=== PATIENT | female | born 2000 | race Caucasian/White ===

== ENCOUNTER 2018-05-09 14:29 | Emergency (ER) | payer OTHER, MEDICAID, SELFPAY ==
--- NOTE | 2018-05-09 14:30 | ED.FEMALEGU ---
HPI - Female Genitourinary <DARRYN Beck - Last Filed: 05/09/18 21:31> General Chief complaint: Urogenital-Female Stated complaint: burning with urination and back pain Time Seen by Provider: 05/09/18 14:30 Source: patient Mode of arrival: ambulatory Limitations: no limitations History of Present Illness HPI Narrative: 17-year-old healthy female that is an everyday smoker here for complaint of having dysuria and increased urinary frequency over the past several days. She also reports that she has had some lower back pain during the same time frame. She is not sure that this is back pain or due to urinary tract infection. She denies any fevers. No chills. No nausea vomiting. She denies any abdominal pain. Positive p.o. intake. She denies any other concerns or complaints. MD Complaint: UTI Related Data Home Medications Medication Instructions Recorded Confirmed hydroxyzine pamoate 25 mg PO BEDTIME 05/09/18 05/09/18 lamotrigine 100 mg PO DAILY 05/09/18 05/09/18 Previous Rx's Medication Instructions Recorded cephalexin 500 mg PO BID #20 tab 05/09/18 Allergies Allergy/AdvReac Type Severity Reaction Status Date / Time No Known Drug Allergies Allergy Verified 05/09/18 14:35 Review of Systems <DARRYN Beck - Last Filed: 05/09/18 21:31> Constitutional Denies chills, Denies fever(s), Denies lethargy and Denies weakness Eyes Denies change in vision, Denies eye discharge, Denies irritation and Denies loss of vision ENT Ears, Nose, Mouth, and Throat: Denies change in voice, Denies neck pain and Denies sore throat Cardiovascular Denies chest pain, Denies irregular heart rhythm, Denies lightheadedness, Denies palpitations, Denies dyspnea, Denies dyspnea on exertion and Denies orthopnea Respiratory Denies cough, Denies dyspnea, Denies dyspnea on exertion and Denies wheezing Gastrointestinal Gastrointestinal: Denies abdominal pain, Denies change in bowel habits, Denies diarrhea, Denies nausea and Denies vomiting Genitourinary Reports dysuria Musculoskeletal Denies neck pain Integumentary/Breasts Denies pruritus, Denies erythema, Denies rash and Denies wounds Neurologic Denies confusion, Denies loss of vision and Denies weakness Psychiatric Denies anxiety, Denies confusion, Denies depression, Denies homicidal ideation and Denies suicidal ideation Endocrine Denies palpitations Hematologic/Lymphatic Denies easy bruising Allergic/Immunologic Denies wheezing PFSH <DARRYN Beck - Last Filed: 05/09/18 21:31> Social History Smoking Status: Current every day smoker Exam <DARRYN Beck - Last Filed: 05/09/18 21:31> Initial Vital Signs Initial Vital Signs: Vital Signs Temperature 97.6 F 05/09/18 14:31 Pulse Rate 87 05/09/18 14:31 Respiratory Rate 14 05/09/18 14:31 Blood Pressure 126/76 05/09/18 14:31 Pulse Oximetry 98 05/09/18 14:31 Const General: cooperative and well developed Nutritional Appearance: well nourished Orientation: alert, awake, oriented x3 and not confused HENMT Mouth: oral mucosae normal and moist mucous membranes Eyes Conjunctivae: conjunctivae normal Sclera: sclerae normal Pupils: PERRL EOM: EOM intact bilaterally Resp Effort & Inspection: normal respiratory effort, able to speak in complete sentences, no respiratory distress and no use of accessory muscles Auscultation: clear to auscultation bilaterally, no rales, no rhonchi and no wheezes Cardio Rate: regular rate Rhythm: regular rhythm Heart Sounds: no click, no gallops, no murmurs and no rubs GI Inspection: non-distended Palpation: soft, no hepatosplenomegaly, No guarding, No pulsatile mass and No tender Auscultation: normal bowel sounds General: No CVA tenderness Skin General: no rashes or lesions noted, No jaundice and No petechiae Neuro General: alert, oriented x3, gait normal and no focal motor deficits Speech: speech normal <Suzanne Woods DO - Last Filed: 05/18/18 16:35> Initial Vital Signs Initial Vital Signs: Vital Signs Temperature 97.6 F 05/09/18 14:31 Pulse Rate 87 05/09/18 14:31 Respiratory Rate 14 05/09/18 14:31 Blood Pressure 126/76 05/09/18 14:31 Pulse Oximetry 98 05/09/18 14:31 Course <DARRYN Beck - Last Filed: 05/09/18 21:31> Orders Ordered: ED Orders 05/09/18 14:50 Urine Culture Stat Urine Microscopic Stat Vital Signs - 8 hr 05/09/18 14:31 Temperature 97.6 F Pulse Rate 87 Respiratory Rate 14 Blood Pressure 126/76 Pulse Oximetry 98 <Suzanne Woods DO - Last Filed: 05/18/18 16:35> Orders Ordered: ED Orders 05/09/18 14:50 Urine Culture Stat Urine Microscopic Stat Vital Signs - 8 hr 05/09/18 14:31 Temperature 97.6 F Pulse Rate 87 Respiratory Rate 14 Blood Pressure 126/76 Pulse Oximetry 98 MDM - Female Genitourinary <DARRYN Beck - Last Filed: 05/09/18 21:31> Lab Data Lab Results 05/09/18 Range/Units 14:50 Urine RBC 1-5/hpf (0-5/HPF) Urine WBC 5-10/hpf H (0-5/HPF) Ur Squamous Epith Cells 5-10 /hpf H Ur Renal Epithelial Cell 1-5/hpf Amorphous Sediment 3+ Urine Bacteria None seen (None) Ur Culture Indicated? Cult not indicated Urine Dip Bedside Urine Glucose Negative Bedside Urine Bilirubin - Negative Bedside Urine Ketone - Negative Urine Specific [place] 1.020 Bedside Urine Occult Blood + Bedside Urine pH 6.0 Bedside Urine Protein +/- 15 Bedside Urine Urobilinogen - Negative Bedside Urine Nitrite - Negative Bedside Urine Leukocytes ++ 125 Esterase MDM Narrative Medical decision making narrative: Urinalysis was positive for leuko esterase and WBCs indicating urinary tract infection. She did not have any CVA tenderness on exam however she did complain of having some left flank pain. She is treated for urinary tract infection and starting a pyelonephritis with Keflex. Plenty of fluids. Follow up with primary care provider in the next couple of days for re-evaluation. For any worsening symptoms return emergency room. Urine culture is pending. <Suzanne Wodos DO - Last Filed: 05/18/18 16:35> Lab Data Lab Results 05/09/18 Range/Units 14:50 Urine RBC 1-5/hpf (0-5/HPF) Urine WBC 5-10/hpf H (0-5/HPF) Ur Squamous Epith Cells 5-10 /hpf H Ur Renal Epithelial Cell 1-5/hpf Amorphous Sediment 3+ Urine Bacteria None seen (None) Ur Culture Indicated? Cult not indicated Urine Dip Bedside Urine Glucose Negative Bedside Urine Bilirubin - Negative Bedside Urine Ketone - Negative Urine Specific [place] 1.020 Bedside Urine Occult Blood + Bedside Urine pH 6.0 Bedside Urine Protein +/- 15 Bedside Urine Urobilinogen - Negative Bedside Urine Nitrite - Negative Bedside Urine Leukocytes ++ 125 Esterase Discharge Plan Departure Patient Disposition: Home Clinical Impression: Urinary tract infection Qualifiers: Urinary tract infection type: acute cystitis Hematuria presence: without hematuria Qualified Code(s): N30.00 - Acute cystitis without hematuria Discharge Date/Time: 05/09/18 15:52 Interventions: ED Discharge Assessment Last Done: 05/09/18 15:53 Instructions: DI for Urinary Tract Infection (UTI) Activity Restrictions/Additional Instructions: Urinalysis indicates urinary tract infection. You are treated with an antibiotic use as directed. Follow up with her primary care provider in the next few days for re-evaluation. Plenty of fluids. For any worsening symptoms Prescriptions: New cephalexin 500 mg tablet 500 mg PO BID Qty: 20 RF: 0 No Action hydroxyzine pamoate 25 mg Capsule 25 mg PO BEDTIME RF: 0 lamotrigine 100 mg tablet 100 mg PO DAILY RF: 0 Referrals: [facility] [Provider Group] <Suzanne Woods DO - Last Filed: 05/18/18 16:35> Cosign ED Attending Cosignature Attestation: I was immediately available in the department for consultation. This documentation has been reviewed and I agree with assessment and plan. Supervised by Suzanne Woods DO
[2018-05-09 14:31] VITALS: BP 126/76; PULSE 87; RESP 14; TEMP 36.4; O2SAT 98; BMI 36.0
[2018-05-09 14:54] LABS: Bacteria Urine None Seen
[2018-05-09 15:09] LABS: Amorphous Sediment Urine 3+; Culture Indicated Urine Cult Not Indicated; RBC Urine 1-5/HPF (0-5/HPF); Renal Epithelial Cells Urine 1-5/HPF; Squamous Epithelial Cell Urine 5-10 /HPF; WBC Urine 5-10/HPF (0-5/HPF)
== END 2018-05-09 15:52 | disposition home or self-care (01) ==
PROVIDERS: Emergency Provider Nurse Practitioner Family
DX: N39.0 Urinary tract infection, site not specified (principal)
CPT/HCPCS: 81003; 81015; 87077; 87086; 87186; 99282; 99283

== ENCOUNTER 2020-12-05 20:34 | Emergency (ER) | payer OTHER, MEDICAID, SELFPAY ==
[2020-12-05 20:50] VITALS: BP 126/76; PULSE 87; RESP 20; TEMP 36.6; O2SAT 99; BMI 36.8
[2020-12-05 21:13] LABS: COVID19 -Nasal RAPID POSITIVE (Negative)
--- NOTE | 2020-12-05 21:20 | ED_ITS ---
HPI - URI/Sore Throat General Chief Complaint: Upper Respiratory Symptoms Stated Complaint: covid+, SOB, covid exposure. at home test Time Seen by Provider: 12/05/20 20:51 History of Present Illness HPI Narrative: 19-year-old female smoker presents with a chief complaint of nasal congestion, runny nose, sore throat and dry hacking cough for the past day and a half. She was at a music festival last weekend and thinks she was likely exposed to persons with COVID. She is not received a COVID vaccination. She denies nausea, vomiting or diarrhea. She took a home test which was positive but her place of work would not accept this as evidence and recommended she come here for rapid testing Related Data Home Medications Medication Instructions Recorded Confirmed hydroxyzine pamoate 25 mg capsule 25 mg PO BEDTIME 05/09/18 05/09/18 lamotrigine 100 mg tablet 100 mg PO DAILY 05/09/18 05/09/18 Previous Rx's Medication Instructions Recorded cephalexin 500 mg tablet 500 mg PO BID #20 tab 05/09/18 Allergies Allergy/AdvReac Type Severity Reaction Status Date / Time No Known Drug Allergies Allergy Verified 05/09/18 14:35 Review of Systems Review of Systems Narrative: GENERAL: See HPI HEENT: See HPI RESPIRATORY: See HPI. CARDIOVASCULAR: Denies chest pain, palpitations, orthopnea, edema, GASTROINTESTINAL: Denies nausea, vomiting, abdominal pain, diarrhea, constipation, melena. : Denies dysuria, frequency, incontinence, hematuria, urinary retention. MUSCULOSKELETAL: denies weakness, joint pain, or bony pain SKIN: Denies rash, skin lesions, or other NEUROLOGIC: Denies weakness, headache, numbness, change in speech, confusion, seizures, incoordination. PSYCHIATRIC: No concerning psychosocial issues. 12 point review of systems is negative except for those stated above Patient History Social History Smoking Status: Current every day smoker Smoking Status: Current every day smoker tobacco type: vaping Substance Use Type: does not use Exam Narrative Exam Narrative: GENERAL: [19] year old patient appears stated age. Well- developed patient, in mild distress. HEAD: Atraumatic. Normocephalic. EYES: Pupils equal round and reactive. Extraocular motions intact. No scleral icterus. No injection or drainage. ENT: Moist mucous membranes, clear nasal drainage bilaterally Nose without bleeding, purulent drainage. Throat without erythema, tonsillar hypertrophy or exudate. Airway patent. NECK: Trachea midline. Non tender CARDIOVASCULAR: Regular rate and rhythm without murmurs, gallops, or rubs. RESPIRATORY: Clear to auscultation. Breath sounds equal bilaterally. No wheezes, rales, or rhonchi. No increased work of breathing such as nasal flaring, use of intercostals or other accessory muscles GASTROINTESTINAL: Abdomen soft, non-tender, nondistended. EXTREMITIES: No edema or joint tenderness. BACK: Nontender without deformity or crepitance. No flank tenderness. NEURO: AOx3. SKIN: No rash or erythema of visible areas Initial Vital Signs Initial Vital Signs: Vital Signs Temperature 97.9 F 12/05/20 20:50 Pulse Rate 87 12/05/20 20:50 Respiratory Rate 20 12/05/20 20:50 Blood Pressure 126/76 12/05/20 20:50 Pulse Oximetry 99 12/05/20 20:50 Course Orders Ordered: ED Orders 12/05/20 20:59 COVID19 -Nasal swab/Pre-Proc Stat Vital Signs Vital signs: Vital Signs - 8 hr 12/05/20 20:50 Temperature 97.9 F Pulse Rate 87 Respiratory Rate 20 Blood Pressure 126/76 Pulse Oximetry 99 MDM - URI/Sore Throat Lab Data Labs: Lab Results 12/05/20 Range/Units 20:59 SARS-CoV-2 (PCR) Positive H (Negative) MDM Narrative Medical decision making narrative: Patient with minimal symptoms and very stable vitals test positive for COVID, she is 2 days into symptoms and perhaps as much as 1 week into her exposure. She was given extensive discussion about return precautions and we discussed the CDC's current return to work precautions. Discharge Plan Departure Patient Disposition: Home Clinical Impression: COVID-19 Instructions: Coronavirus Disease 2019 Activity Restrictions/Additional Instructions: *You have been diagnosed with [ COVID-19] *What to do: * per recommendations from the CDC and the [facility] Department of Health * stay home except to get medical care. Restrict activities outside your home, except for getting medical care. Do not go to work, school, or public areas. Avoid using public transportation, ride sharing, or taxis. * separate yourself from other people in your home. * call ahead before visiting your doctor * Wear a facemask * Cover your coughs and sneezes * Clean your hands often * Avoid sharing household items * Clean all high-touch services every day * Monitor your symptoms and seek prompt medical attention if your illness is worsening, particularly with difficulty in breathing. You may discontinue your isolation when: 1. You have been fever-free for at least 24 hours without the use of fever reducing medication, AND 2. Your symptoms are getting better 3. At least 10 days have passed since symptoms first appeared Individuals with laboratory confirmed COVID-19 who have not had any symptoms may discontinue home isolation when at least 10 days have passed since the date of their first COVID-19 diagnostic test and have had no subsequent illness Prescriptions: No Action hydroxyzine pamoate 25 mg Capsule 25 mg PO BEDTIME RF: 0 lamotrigine 100 mg tablet 100 mg PO DAILY RF: 0 cephalexin 500 mg tablet 500 mg PO BID Qty: 20 RF: 0 Referrals: [facility] [Outside]
== END 2020-12-05 21:33 | disposition home or self-care (01) ==
PROVIDERS: Emergency Provider Emergency Medicine
DX: U07.1 COVID-19 (principal)
CPT/HCPCS: 87635; 99281; 99282; C9803

== ENCOUNTER 2021-02-06 18:59 | Emergency (ER) | payer OTHER, MEDICAID, SELFPAY ==
[2021-02-06 19:07] VITALS: BP 123/62; PULSE 90; RESP 18; TEMP 36.2; O2SAT 98
[2021-02-06 20:04] LABS: COVID19 -Nasal RAPID Negative (Negative)
--- NOTE | 2021-02-06 21:14 | ED.RECABL ---
HPI - Recheck/Abnormal Lab/Rx General Chief Complaint: Recheck/Abnormal Lab/Rx Stated Complaint: wants covid test Time Seen by Provider: 02/06/21 21:14 Source: patient Mode of arrival: Ambulatory Limitations: no limitations History of Present Illness HPI narrative: Patient is a 20 female history of bipolar presenting today with wanting a COVID test. Her roommate started having COVID symptoms 5 days ago he says they are relatively separate however they spoke to work together however and separate Konrad. She tested positive for COVID today. Required by work to have a COVID test before returning back to work. She says that she denies any symptoms and overall feels well. Roommate left today. Related Data Home Medications Medication Instructions Recorded Confirmed hydroxyzine pamoate 25 mg capsule 25 mg PO BEDTIME 05/09/18 05/09/18 lamotrigine 100 mg tablet 100 mg PO DAILY 05/09/18 05/09/18 Allergies Allergy/AdvReac Type Severity Reaction Status Date / Time sumatriptan [From Imitrex] Allergy Intermediate Hives Verified 01/05/21 12:47 Review of Systems Review of Systems Narrative: GENERAL: Denies chills,fever HEENT: Denies throat pain RESPIRATORY: Denies dyspnea, cough, wheezing CARDIOVASCULAR: Denies chest pain, palpitations GASTROINTESTINAL: Denies nausea, vomiting MUSCULOSKELETAL: Denies extremity pain, injury SKIN: No rash, no laceration, no pruritus NEUROLOGIC: Denies weakness, dizziness, headache, numbness 8 point review of systems is negative except for those stated above and HPI Patient History Medical History (Updated 02/06/21 @ 21:16 by María Bradley DO) Migraine Social History Smoking Status: Current every day smoker Smoking Status: Current every day smoker tobacco type: vaping Substance Use Type: does not use Exam Initial Vital Signs Initial Vital Signs: Vital Signs Temperature 97.2 F L 02/06/21 19:07 Pulse Rate 90 02/06/21 19:07 Respiratory Rate 18 02/06/21 19:07 Blood Pressure 123/62 02/06/21 19:07 Pulse Oximetry 98 02/06/21 19:07 GENERAL: Well-appearing, well-nourished and in no acute distress. CARDIOVASCULAR: peripheral pulses in tact, cap refill <2 sec RESPIRATORY: No respiratory distress, speaks in full sentences without difficulty EXTREMITIES: Normal range of motion, no clubbing or edema. Neurovascularly intact NEUROLOGICAL: Cranial nerves II through XII grossly intact. Normal gait and speech. SKIN: Warm, dry, no petechiae, no rashes or lesions. Course Orders Ordered: ED Orders 02/06/21 19:10 COVID19 -Nasal swab/Pre-Proc Stat Vital Signs Vital signs: Vital Signs - 8 hr 02/06/21 19:07 02/06/21 21:21 Temperature 97.2 F L Pulse Rate 90 82 Respiratory Rate 18 15 Blood Pressure 123/62 126/79 Pulse Oximetry 98 100 MDM - Recheck/Abnormal Lab/Rx Lab Data Labs: Lab Results 02/06/21 Range/Units 19:10 SARS-CoV-2 (PCR) Negative (Negative) Discharge Plan Departure Patient Disposition: Home Clinical Impression: Worried well Instructions: About the COVID-19 Vaccine, Can COVID-19 be prevented? Activity Restrictions/Additional Instructions: *You have been diagnosed with at this time COVID test is negative *What to do: I do recommend having a repeat COVID test in about 3-5 days. Encourage you to get a COVID vaccine as long as a COVID test remains negative. If it is positive you must wait until your infection is over. *Continue to take medications as directed *Follow up with your primary care provider in 2-3 days *Return to ER if you should have any new, worsening or concerning symptoms Prescriptions: No Action hydroxyzine pamoate 25 mg Capsule 25 mg PO BEDTIME RF: 0 lamotrigine 100 mg tablet 100 mg PO DAILY RF: 0 Referrals: Eros Guillen MD [Primary Care Provider] -
[2021-02-06 21:21] VITALS: BP 126/79; PULSE 82; RESP 15; O2SAT 100
== END 2021-02-06 21:22 | disposition home or self-care (01) ==
PROVIDERS: Emergency Medicine; Emergency Provider Emergency Medicine; PCP Family Medicine
DX: Z20.822 Contact with and (suspected) exposure to COVID-19 (principal)
CPT/HCPCS: 87635; 99281; C9803

== ENCOUNTER 2022-07-15 07:26 | Emergency (ER) | payer OTHER, MEDICAID, SELFPAY ==
--- NOTE | 2022-07-15 07:59 | ED.ABDPAIN ---
HPI - Abdominal Pain General Chief Complaint: Abdominal Pain Stated Complaint: vomiting/lightheaded Time Seen by Provider: 07/15/22 07:46 Source: patient Mode of arrival: Ambulatory Limitations: no limitations History of Present Illness HPI narrative: Patient presents with lower abdominal pain, nausea vomiting. She is had intermittent upper abdominal pain for several weeks, generally radiating to her back. Over last couple days the abdominal pain, nausea vomiting have been persistent. Pain radiates to her back associated with the abdominal pain. She is uncertain if oral intake exacerbate the pain, she is currently not eating much. She is no fever chills with the current symptoms. She is no diarrhea. She is no history of PUD. She does not smoke. She does not use heavy alcohol. She occasionally uses marijuana. She is no history of GI or surgeries. She is on control, is unlikely. She is no hematuria or dysuria. There is no change in the color of her urine or stools. She was recently seen in walk-in clinic and started on omeprazole and sucralfate. Related Data Home Medications Medication Instructions Recorded Confirmed hydroxyzine pamoate 25 mg capsule 25 mg PO BEDTIME 05/09/18 05/09/18 lamotrigine 100 mg tablet 100 mg PO DAILY 05/09/18 05/09/18 Previous Rx's Medication Instructions Recorded ondansetron 4 mg disintegrating 4 mg PO Q4-6H PRN nausea and 07/15/22 tablet vomiting #20 tabs Allergies Allergy/AdvReac Type Severity Reaction Status Date / Time sumatriptan [From Imitrex] Allergy Intermediate Hives Verified 01/05/21 12:47 Review of Systems Review of Systems ROS Unobtainable: All systems reviewed & are unremarkable except as noted in HPI and below Constitutional Constitutional: Denies body ache(s), Denies chills, Denies fever(s) and Denies headache(s) Eyes Eyes: Denies change in vision ENT Ears, Nose, Mouth, and Throat: Denies dizziness, Denies headache(s), Denies sinus pain and Denies sore throat Cardiovascular Cardiovascular: Denies chest pain, Denies palpitations and Denies dyspnea Respiratory Respiratory: Denies cough and Denies dyspnea Gastrointestinal Gastrointestinal: Reports as per HPI Genitourinary Genitourinary: Reports as per HPI Musculoskeletal Musculoskeletal: Reports back pain Integumentary/Breasts Skin/Breast: Denies rash and Denies jaundice Neurologic Neurologic: Denies dizziness and Denies headache(s) Psychiatric Psychiatric: Denies anxiety and Denies depression Endocrine Endocrine: Denies palpitations Hematologic/Lymphatic On Anticoagulants: No Patient History Medical History (Updated 07/15/22 @ 14:17 by Ras Calle MD) Migraine Surgical History (Updated 07/15/22 @ 08:09 by Ras Calle MD) No significant past surgical history Social History Smoking Status: Current some day smoker Smoking Status: Current every day smoker tobacco type: vaping Substance Use Type: does not use Exam Initial Vital Signs Initial Vital Signs: Vital Signs Temperature 97.4 F L 07/15/22 08:04 Pulse Rate 93 H 07/15/22 08:04 Respiratory Rate 18 07/15/22 08:04 Blood Pressure 155/95 H 07/15/22 08:04 Pulse Oximetry 96 07/15/22 08:04 Oxygen Delivery Method Room Air 07/15/22 08:04 Const General: cooperative, healthy appearing and comfortable Nutritional Appearance: obese [facility] Head: normocephalic and atraumatic Eyes Conjunctivae: conjunctivae normal Pupils: PERRL EOM: EOM intact bilaterally Neck Neck: normal visual inspection, full ROM and no meningeal signs Resp Auscultation: clear to auscultation bilaterally Cardio Rate: regular rate Rhythm: regular rhythm Heart Sounds: S1 normal and S2 normal GI Other: Epigastric and right upper quadrant tenderness without distention, guarding or rebound. No masses. Normal bowel sounds. Back/Spine/Pelvis Back: No CVA tenderness Skin General: no rashes or lesions noted and No jaundice Neuro General: patient alert, patient awake, patient oriented x3, no meningeal signs and no focal motor deficits Extrem General: normal to inspection, full ROM, no pedal edema and no calf tenderness Psych Mental Status: mental status grossly normal Course Course Course Narrative: Ultrasound reveals normal gallbladder, she has hepatic steatosis. She is on omeprazole and Carafate prescribed from walk-in clinic. She is improved here on Protonix, Zofran and Toradol. Labs are reassuring. She is advised to continue current medications. Zofran as prescribed. She is advised to be on a low-fat diet, and follow up with her see PCM. Orders Ordered: ED Orders 07/15/22 08:00 Complete Blood Count AUTO DIFF Stat Comprehensive Metabolic Panel Stat Lipase Stat 07/15/22 08:04 US abdomen limited Stat 07/15/22 09:48 Urine Culture Stat Urine Microscopic Stat Ondansetron HCl (Ondansetron 4 Mg Odt) 4 mg PO NOW PRN PRN Reason: Nausea And Vomiting Ondansetron HCl (Ondansetron 4 Mg/2 Ml Inj) 4 mg IV NOW PRN PRN Reason: Nausea And Vomiting Last Admin: 07/15/22 11:12 Dose: 4 mg Documented By: AT Discontinued Medications Sodium Chloride (Normal Saline 0.9%) 1,000 mls @ 1,000 mls/hr IV BOLUS ONE Stop: 07/15/22 09:03 Last Infusion: 07/15/22 09:41 Dose: 0 mls/hr Documented By: Admin: 07/15/22 08:24 Dose: 1,000 mls/hr Documented By: AT Ketorolac Tromethamine (Ketorolac 30 Mg/Ml Vial) 30 mg IV NOW ONE Stop: 07/15/22 08:05 Last Admin: 07/15/22 08:23 Dose: 30 mg Documented By: AT Pantoprazole Sodium (Pantoprazole 40 Mg Vial) 40 mg IV NOW ONE Stop: 07/15/22 08:05 Last Admin: 07/15/22 08:23 Dose: 40 mg Documented By: AT Vital Signs Vital signs: Vital Signs - 8 hr 07/15/22 08:04 07/15/22 09:48 07/15/22 11:00 Temperature 97.4 F L 97 F L Pulse Rate 93 H 70 68 Respiratory Rate 18 20 18 Blood Pressure 155/95 H 148/16 H 133/68 Pulse Oximetry 96 98 99 Oxygen Delivery Method Room Air Room Air Room Air MDM - Abdominal Pain Lab Data 07/15/22 08:00 07/15/22 08:00 Labs: Lab Results 07/15/22 07/15/22 07/15/22 Range/Units 08:00 08:00 09:48 WBC 10.7 (4.5-11.0) X10^3/uL RBC 5.12 (4.0-5.2) X10^6/uL Hgb 15.3 (12.0-16.0) g/dL Hct 45.6 (36-46) % MCV 89.1 (80-100) fL MCH 29.9 (26-34) PG MCHC 33.6 (30-36) % RDW 14.4 (11.6-14.8) % Plt Count 315 (150-400) X10^3/uL Neut % (Auto) 75.0 (50-75) % Lymph % (Auto) 18.2 L (25-40) % Chambers % (Auto) 5.2 (3-14) % Eos % (Auto) 1.1 L (2-4) % Baso % (Auto) 0.5 (0-2) % Neut # (Auto) 8000 H (2977-2041) /uL Lymph # (Auto) 1900 (1082-6000) /uL Chambers # (Auto) 600 (0-900) /uL Eos # (Auto) 100 (0-450) /uL Baso # (Auto) 100 (0-100) /uL Sodium 138 (137-145) mmol/L Potassium 3.9 (3.4-5.1) mmol/L Chloride 107 (98-107) mmol/L Carbon Dioxide 22 (22-32) mmol/L BUN 6 L (7-17) mg/dL Creatinine 0.63 (0.52-1.04) mg/dL Estimated GFR > 60 (>60) mL/min BUN/Creatinine Ratio 9.5 (6-22) Glucose 111 H (70-100) mg/dL Calcium 9.0 (8.4-10.2) mg/dL Total Bilirubin 0.5 (0.2-1.3) mg/dL AST 39 H (14-36) IU/L ALT 65 H (<35) IU/L Alkaline Phosphatase 50 (38-126) U/L Total Protein 7.8 (6.3-8.2) g/dL Albumin 4.3 (3.5-5.0) g/dL Globulin 3.5 (1.7-4.1) g/dL Albumin/Globulin Ratio 1.2 (1.0-2.8) Lipase 35 (23-300) U/L Urine RBC 0-1/hpf (0-5/HPF) Urine WBC 1-5/hpf (0-5/HPF) Ur Squamous Epith Cells 5-10 /hpf H (0-5/HPF) Urine Bacteria Moderate (10-30) H (None) Ur Culture Indicated? Specimen cultured Point of care testing: Point of Care Testing Test Results Negative Urine Dip Bedside Urine Glucose Negative Bedside Urine Bilirubin - Negative Bedside Urine Ketone - Negative Urine Specific [place] 1.015 Bedside Urine Occult Blood - Negative Bedside Urine pH 6.0 Bedside Urine Protein - Negative Bedside Urine Urobilinogen - Negative Bedside Urine Nitrite - Negative Bedside Urine Leukocytes +/- 15 Esterase Imaging Data US - abdomen: Radiologist's Impression: Marked hepatic steatosis, abnormal for age.? Findings may indicate metabolic disease. ? Discharge Plan Departure Patient Disposition: Home Clinical Impression: Epigastric abdominal pain, Hepatic steatosis Instructions: DI for Dyspepsia Activity Restrictions/Additional Instructions: continue omeprazole and Carafate. Zofran every 4 hours for nausea. Very low-fat diet. Eat small amounts at a time. Recheck with your doctor in 2-3 weeks. Return here as needed. Prescriptions: New ondansetron 4 mg tablet,disintegrating 4 mg PO Q4-6H PRN (Reason: nausea and vomiting) Qty: 20 0RF No Action hydroxyzine pamoate 25 mg Capsule 25 mg PO BEDTIME lamotrigine 100 mg tablet 100 mg PO DAILY Referrals: Eros Guillen MD [Primary Care Provider] - Stand Alone Forms: Patient Portal/API
[2022-07-15 08:04] VITALS: BP 155/95; PULSE 93; RESP 18; TEMP 36.3; O2SAT 96; BMI 37.5
--- NOTE | 2022-07-15 08:04 | DI.US.S_ITS ---
PROCEDURE: US ABDOMEN LIMITED INDICATIONS: RUQ PAIN TECHNIQUE: Real-time scanning was performed of the abdominal and retroperitoneal organs, with image documentation. COMPARISON: None. FINDINGS: Liver: The liver is hyperechoic, and dense, with posterior attenuation. Gallbladder: Unremarkable. Biliary ducts: Intrahepatic bile ducts are non-dilated. Extrahepatic bile duct caliber measures 2 mm. Normal is 6-7 mm or less in diameter, or 10 mm or less post-cholecystectomy. Pancreas: Visualized portions of the pancreas are sonographically normal. Miscellaneous: No free abdominal fluid. IMPRESSION: Marked hepatic steatosis, abnormal for age. Findings may indicate metabolic disease. Dictated by: Jamar Henderson M.D. on 07/15/2022 at 9:14 Approved by: Jamar Henderson M.D. on 07/15/2022 at 9:17
[2022-07-15 08:12] LABS: Add Manual Diff / Slide Review NO; Basophils Absolute Auto 100 /uL (0-100); Basophils Percent Auto 0.5 % (0-2); Eosinophils Absolute Auto 100 /uL (0-450); Eosinophils Percent Auto 1.1 % (2-4); Hematocrit 45.6 % (36-46); Hemoglobin 15.3 g/dL (12.0-16.0); Lymphocytes Absolute Auto 1900 /uL (1100-4500); Lymphocytes Percent Auto 18.2 % (25-40); Mean Corpuscular HGB Conc 33.6 % (30-36); Mean Corpuscular Hemoglobin 29.9 PG (26-34); Mean Corpuscular Volume 89.1 fL (80-100); Monocytes Absolute Auto 600 /uL (0-900); Monocytes Percent Auto 5.2 % (3-14); Neutrophils Absolute Auto 8000 /uL (1500-7000); Platelet Count 315 X10^3/uL (150-400); Red Blood Cell Count 5.12 X10^6/uL (4.0-5.2); Red Cell Distribution Width 14.4 % (11.6-14.8); White Blood Cell Count 10.7 X10^3/uL (4.5-11.0)
[2022-07-15] MEDS: PANTOPRAZOLE 40 MG VIAL IV (08:23)
[2022-07-15] MEDS: KETOROLAC 30 MG/ML VIAL IV (08:23)
[2022-07-15] MEDS: SODIUM CHLORIDE 0.9% 1,000 ML 1000 ML IV (08:24)
[2022-07-15 08:58] LABS: Alanine Aminotransferase 65 IU/L (<35); Albumin 4.3 g/dL (3.5-5.0); Albumin Globulin Ratio 1.2 (1.0-2.8); Alkaline Phosphatase 50 U/L (38-126); Aspartate Aminotransferase 39 IU/L (14-36); BUN Creatinine Ratio 9.5 (6-22); Bilirubin Total 0.5 mg/dL (0.2-1.3); Blood Urea Nitrogen 6 mg/dL (7-17); Carbon Dioxide 22 mmol/L (22-32); Chloride 107 mmol/L (98-107); Estimated Glomerular Filt Rate > 60 mL/min (>60); Globulin 3.5 g/dL (1.7-4.1); Glucose 111 mg/dL (70-100); HEMOLYSIS < 15 (0-50); Lipase 35 U/L (23-300); Potassium 3.9 mmol/L (3.4-5.1); Sodium 138 mmol/L (137-145); Total Protein 7.8 g/dL (6.3-8.2)
[2022-07-15 09:48] VITALS: BP 148/16; PULSE 70; RESP 20; TEMP 36.1; O2SAT 98
[2022-07-15 10:07] LABS: Bacteria Urine Moderate (10-30); RBC Urine 0-1/HPF (0-5/HPF); Squamous Epithelial Cell Urine 5-10 /HPF (0-5/HPF); WBC Urine 1-5/HPF (0-5/HPF)
[2022-07-15 10:08] LABS: Culture Indicated Urine Specimen Cultured
[2022-07-15 11:00] VITALS: BP 133/68; PULSE 68; RESP 18; O2SAT 99
[2022-07-15] MEDS: ONDANSETRON 4 MG/2 ML INJ IV (11:12)
--- NOTE | 2022-07-15 13:12 | PC.NURSE ---
Rounded on pt to find her dry heaving and vomiting. Pt reprts clenching pain behind her belly button and reports a 7/[address] Calle aware.
[2022-07-15 14:11] VITALS: BP 143/82; PULSE 70; RESP 16; O2SAT 99
== END 2022-07-15 14:30 | disposition home or self-care (01) ==
PROVIDERS: Emergency Provider Emergency Medicine; PCP Family Medicine
DX: R10.13 Epigastric pain (principal); K76.0 Fatty (change of) liver, not elsewhere classified; R11.2 Nausea with vomiting, unspecified
CPT/HCPCS: 36415; 76705; 80053; 81003; 81015; 81025; 83690; 85025; 87086; 96361; 96374; 96375; 99284; C9113; J1885; J2405